=== PATIENT | female | born 1955 | race Caucasian/White ===

== ENCOUNTER 2018-12-27 11:50 | Emergency (ER) | payer OTHER ==
[2018-12-27] MEDS ORDERED: ONDANSETRON 4 MG/2 ML VIAL ONE ×3 (12:23→16:39)
--- NOTE | 2018-12-27 12:42 | RAD REPORT ---
EXAM DESCRIPTION: CT - CTHCSPWOC - 12/27/2018 12:29 pm CLINICAL HISTORY: Trauma, head and neck injury. PAIN COMPARISON: No comparisons TECHNIQUE: Axial 5 mm thick images of the head were obtained. Axial 2 mm thick images of the cervical spine were obtained with sagittal and coronal reconstruction images generated and reviewed. All CT scans are performed using dose optimization technique as appropriate and may include automated exposure control or mA/KV adjustment according to patient size. FINDINGS: CT HEAD WITHOUT CONTRAST: No acute hemorrhage, hydrocephalus or extra-axial collection is identified.No areas of brain edema or midline shift. The paranasal sinuses and mastoids are clear.The calvarium is intact. CT CERVICAL SPINE WITHOUT CONTRAST: No fracture or subluxation.No prevertebral soft tissues swelling is identified. IMPRESSION: No acute intracranial or cervical spine findings.
--- NOTE | 2018-12-27 12:49 | RAD REPORT ---
EXAM DESCRIPTION: RAD - Chest Single View - 12/27/2018 12:39 pm CLINICAL HISTORY: CHEST PAIN Chest pain. COMPARISON: CHEST SINGLE VIEW dated 02/06/2009; CHEST SINGLE VIEW dated 06/14/2003 FINDINGS: Portable technique limits examination quality. The lungs are grossly clear. The heart is normal in size. No displaced fractures. IMPRESSION: No acute intrathoracic process suspected.
[2018-12-27 12:55] LABS: Absolute Lymphocytes (CBC) 1.4 K/uL (0.7-4.9); Hematocrit 38.8 % (36.0-45.0); Lymphocytes % 17.2 % (15.3-44.8); MPV 8.1 fL (7.6-11.3); RBC Red Blood Cell Count 4.41 M/uL (3.86-4.86)
[2018-12-27] MEDS ORDERED: MORPHINE 4 MG/ML SYR ONE (12:55)
[2018-12-27 13:00] LABS: Protime INR 1.01
--- NOTE | 2018-12-27 13:08 | EKG ---
Test Date: 2018-12-27 Test Time: 12:11:05 Immigration Services Officer: SHIMA MEASUREMENT RESULTS: Intervals: Rate: 76 [place]: 128 QRSD: 80 QT: 388 QTc: 436 [place]: P: 41 [place]: 128 QRS: 37 T: 1 INTERPRETIVE STATEMENTS: Normal sinus rhythm Nonspecific ST and T wave abnormality Abnormal ECG Compared to ECG 02/07/2009 09:04:24 ST (T wave) deviation now present Sinus tachycardia no longer present Electronically Signed On 12-27-18 13:08:28 CDT by Christiano Cabral
[2018-12-27 13:20] LABS: Potassium 3.6 mmol/L (3.5-5.1)
[2018-12-27 13:26] LABS: ALT/SGPT 27 U/L (12-78); AST/SGOT 15 U/L (15-37); Albumin 3.8 g/dL (3.4-5.0); Alkaline Phosphatase 60 U/L (45-117); Bilirubin Direct < 0.1 mg/dL (0-0.2); Bilirubin Total 0.4 mg/dL (0.2-1.0); Magnesium 2.3 mg/dL (1.8-2.4); NT PRO-BNP 75 pg/mL (<125); Protein, Total 7.4 g/dL (6.4-8.2); Troponin (Emerg Dept Use Only) < 0.02 ng/mL (0.0-0.045)
[2018-12-27] MEDS ORDERED: TRAMADOL HCL 50 MG TAB ONE (15:20)
--- NOTE | 2018-12-27 16:22 | ER ---
Nurse's Notes [facility] Name: Jennifer Augustine Age: 63 yrs Sex: Female : 1955 Arrival Date: 12/27/2018 Time: 11:52 Bed 4 Private MD: Nicholas Barnes T Diagnosis: Superficial injury of head;Syncope and collapse Presentation: 12/27 12:01 Presenting complaint: Tripped over water hose, landed supine on concrete, positive LOC hb at 0930 today. Also reports syncopal episode x 3 and vomit x 7 since fall, sinus congestion, nausea, and malaise x 5 days, severe stress following brother's 1 week ago. Care prior to arrival: Medication(s) given: ASA, 81 mg, x 2. Mechanism of Injury: Fall from standing position. 12:01 Acuity: JOLIE 2 hb 12:01 Method Of Arrival: Wheelchair hb 12:11 Trauma event details: Injury occurred in the [facility], Injury occurred: at home. Injury occurred: December 27, 2018 Injury occurred at: 09:30. Trauma Activation: Alert Physician: ED Physician; Name: Dr. Lombardo; Notified At: 12:12; Arrived At: 12:12 Physician: General Surgeon; Name: ; Notified At: 12:12; Arrived At: Physician: Radiology; Name: ; Notified At: 12:12; Arrived At: Physician: Respiratory; Name: ; Notified At: 12:12; Arrived At: Physician: Lab; Name: ; Notified At: 12:12; Arrived At: Historical: - Allergies: 12:07 hydrocodone bitartrate; hb - Home Meds: 12:07 None [Active]; hb - PMHx: 12:07 None; hb - PSHx: 12:07 Cholecystectomy; Appendectomy; Tubal ligation; ankle sx; hb - Immunization history:: Adult Immunizations up to date. - Social history:: Smoking status: Patient/guardian denies using tobacco. - Ebola Screening: : No symptoms or risks identified at this time. Screenin:13 Abuse screen: Denies threats or abuse. Denies injuries from another. Tuberculosis hb screening: No symptoms or risk factors identified. Primary Survey: 12:01 NO uncontrolled hemorrhage observed. A: The patient is alert. Airway: patent, No hb supplemental oxygen in use on arrival. Breathing/Chest: Respiratory pattern: regular, Respiratory effort: spontaneous, unlabored, Chest inspection: symmetrical rise and fall of the chest. Circulation: Skin color: pink, Skin temperature: warm, dry. Disability Alert. Exposure/Environment: No obvious injuries are noted at this time. A warming method has been applied: A warm blanket has been provided to the patient. Secondary Survey: 12:15 HEENT: Head Other swelling noted to the occipital area of head Face No injury/deformity sg Eyes: No injury or deformity noted. Ears: clear bilaterally. Nose: clear to bilateral nares. Throat: No injury or deformity noted. Gastrointestinal: Abdomen is soft, non-distended. : No signs and/or symptoms were reported regarding the genitourinary system. Musculoskeletal: No signs and/or symptoms reported regarding the musculoskeletal system. Injury Description: hematoma to occipital area. Assessment: 12:39 Reassessment: Patient appears in no apparent distress at this time. Patient and/or sg family updated on plan of care and expected duration. Pain level reassessed. Patient is alert, oriented x 3, equal unlabored respirations, skin warm/dry/pink. General: Behavior is calm, cooperative. Neuro: Level of Consciousness is awake, alert, obeys commands, Oriented to person, place, time, Speech is normal, Facial symmetry appears normal. 13:50 Reassessment: Patient appears in no apparent distress at this time. Patient and/or sg family updated on plan of care and expected duration. Pain level reassessed. Patient is alert, oriented x 3, equal unlabored respirations, skin warm/dry/pink. pt reports feeling drowsy after pain medication, but also reports pain has decreased. 14:30 Reassessment: Patient appears in no apparent distress at this time. Patient and/or sg family updated on plan of care and expected duration. Pain level reassessed. Patient is alert, oriented x 3, equal unlabored respirations, skin warm/dry/pink. pt complaining of headache at this time, notified, no new orders received. to re evaluate pt and update on results and POC, will continue to monitor. 16:20 Reassessment: a discharge has been ordered, awaiting discharge paperwork to be printed sg at this time. 16:40 Reassessment: pt requesting antinausea medication prior to discharge to home, awaiting sg prescriptions to be printed at this time. Vital Signs: 12:05 BP 145 / 90; Pulse 84; Resp 16; Temp 97.1; Pulse Ox 100% on R/A; Weight 75.75 kg; hb Height 5 ft. 4 in. (162.56 cm); Pain 8/10; 13:05 BP 112 / 88; Pulse 88; Resp 17; Pulse Ox 96% on R/A; Pain 7/10; sg 13:48 BP 117 / 51; Pulse 68; Resp 16; Pulse Ox 95% on R/A; Pain 3/10; sg 14:30 BP 102 / 65; Pulse 72; Resp 17; Pulse Ox 96% on R/A; sg 15:53 BP 118 / 69; Pulse 89; Resp 17; Pulse Ox 100% on R/A; Pain 3/10; sg 16:29 BP 137 / 66; Pulse 87; Resp 17; Pulse Ox 99% on R/A; sg 12:05 Body Mass Index 28.67 (75.75 kg, 162.56 cm) hb [place] Coma Score: 13:05 Eye Response: spontaneous(4). Verbal Response: oriented(5). Motor Response: obeys sg commands(6). Total: 15. 15:53 Eye Response: spontaneous(4). Verbal Response: oriented(5). Motor Response: obeys sg commands(6). Total: 15. Trauma Score (Adult): 12:05 Eye Response: spontaneous(1); Verbal Response: oriented(1); Motor Response: obeys hb commands(2); Systolic BP: > 89 mm Hg(4); Respiratory Rate: 10 to 29 per min(4); [place] Score: 15; Trauma Score: 12 13:05 Eye Response: spontaneous(1); Verbal Response: oriented(1); Motor Response: obeys sg commands(2); Systolic BP: > 89 mm Hg(4); Respiratory Rate: 10 to 29 per min(4); [place] Score: 15; Trauma Score: 12 13:48 Eye Response: spontaneous(1); Verbal Response: oriented(1); Motor Response: obeys sg commands(2); Systolic BP: > 89 mm Hg(4); Respiratory Rate: 10 to 29 per min(4); [place] Score: 15; Trauma Score: 12 15:53 Eye Response: spontaneous(1); Verbal Response: oriented(1); Motor Response: obeys sg commands(2); Systolic BP: > 89 mm Hg(4); Respiratory Rate: 10 to 29 per min(4); [place] Score: 15; Trauma Score: 12 ED Course: 11:52 Patient arrived in ED. ag5 11:53 Nicholas Barnes MD is Private Physician. ag5 11:54 Adam Lombardo MD is Attending Physician. kdr 12:05 Triage completed. hb 12:06 Arm band placed on. hb 12:22 EKG done, by registered diet technician. reviewed by Adam Lombardo MD. at1 12:30 CT Head C Spine In Process Unspecified. EDMS 12:30 Patient has correct armband on for positive identification. Placed in gown. Bed in low sg position. Side rails up X2. Pulse ox on. NIBP on. Warm blanket given. Head of bed elevated. 12:30 Initial lab(s) drawn, by ED staff, sent to lab. T\T\S collected, blood band applied to sg patient. Inserted saline lock: 18 gauge in right antecubital area, using aseptic technique. Blood collected. 12:34 Abdirashid Alexander, RN is Primary Nurse. sg 12:38 XRAY Chest (1 view) In Process Unspecified. EDMS 12:40 Awaiting radiology results. sg 16:20 Nicholas Barnes MD is Referral Physician. kdr Administered Medications: 12:25 Drug: Zofran 4 mg Route: IVP; Site: right antecubital; sg 13:10 Follow up: Response: No adverse reaction; Nausea is decreased sg 13:01 Drug: morphine 4 mg Route: IVP; Site: right antecubital; sg 13:53 Follow up: Response: No adverse reaction; Pain is decreased sg 15:19 Drug: traMADol 50 mg Route: PO; sg Outcome: 16:21 Discharge ordered by . kdr 16:50 Discharged to home ambulatory, with family. sg 16:50 Condition: good 16:50 Discharge instructions given to patient, Instructed on discharge instructions, follow up and referral plans. medication usage, safety practices, Demonstrated understanding of instructions, follow-up care, medications, Prescriptions given X 1. 17:05 Patient left the ED. sg Signatures: Dispatcher [employer] EDMS Abdirashid Alexander RN RN Adam Pimentel MD MD kdr Gonzales, Amanda, machinery cleaner EKG Tat1 Kristin Gilbert RN RN Nasim Danny ag5 Corrections: (The following items were deleted from the chart) 12:12 12:01 Presenting complaint: Tripped over water hose, landed supine on concrete, hb positive LOC. Also reports syncopal episode x 3 and vomit x 7 today, sinus congestion, nausea, and malaise x 5 days. 12:13 12:01 Care prior to arrival: None. [facility] 12:15 12:01 Presenting complaint: Tripped over water hose, landed supine on concrete, hb positive LOC. Also reports syncopal episode x 3 and vomit x 7 today, sinus congestion, nausea, and malaise x 5 days.
--- NOTE | 2018-12-27 16:22 | EDPHYS ---
Physician Documentation [facility] Name: Jennifer Augustine Age: 63 yrs Sex: Female : 1955 Arrival Date: 12/27/2018 Time: 11:52 Bed 4 Private MD: Nicholas Barnes T ED Physician Adam Lombardo HPI: 12/27 12:20 This 63 yrs old Female presents to ER via Wheelchair with complaints of Fall kdr Injury, Passed Out Prior To Arrival, Vomiting. 12:20 Details of fall: The patient fell from an upright position, while standing, while kdr walking. Onset: The symptoms/episode began/occurred just prior to arrival, this morning. Associated injuries: The patient sustained injury to the head, contusion, pain, tenderness, neck injury, contusion. Severity of symptoms: At their worst the symptoms were mild, just prior to arrival, in the emergency department the symptoms are unchanged. The patient has not experienced similar symptoms in the past. The patient has not recently seen a physician. The patient states that she tripped over a hose and fell flat on her back hitting her head on the ground. She believes that she was briefly unconscious but was able to get up. She states that since then, she has blacked out once and vomited nine times. She also c/o being very dizzy. Historical: - Allergies: 12:07 hydrocodone bitartrate; hb - Home Meds: 12:07 None [Active]; hb - PMHx: 12:07 None; hb - PSHx: 12:07 Cholecystectomy; Appendectomy; Tubal ligation; ankle sx; hb - Immunization history:: Adult Immunizations up to date. - Social history:: Smoking status: Patient/guardian denies using tobacco. - Ebola Screening: : No symptoms or risks identified at this time. ROS: 12:20 Constitutional: Negative for fever, chills, and weight loss, Eyes: Negative for injury, kdr pain, redness, and discharge, ENT: Negative for injury, pain, and discharge, Neck: Negative for injury, pain, and swelling, Respiratory: Negative for shortness of breath, cough, wheezing, and pleuritic chest pain, Abdomen/GI: Negative for abdominal pain, nausea, vomiting, diarrhea, and constipation, Back: Negative for injury and pain, : Negative for injury, bleeding, discharge, and swelling, MS/Extremity: Negative for injury and deformity, Skin: Negative for injury, rash, and discoloration, Psych: Negative for depression, anxiety, suicide ideation, homicidal ideation, and hallucinations, Allergy/Immunology: Negative for hives, rash, and allergies, Endocrine: Negative for neck swelling, polydipsia, polyuria, polyphagia, and marked weight changes, Hematologic/Lymphatic: Negative for swollen nodes, abnormal bleeding, and unusual bruising. 12:20 Cardiovascular: Positive for chest pain, Negative for edema, orthopnea, palpitations, paroxysmal nocturnal dyspnea. Exam: 12:20 Constitutional: This is a well developed, well nourished patient who is awake, alert, kdr and in no acute distress. Head/Face: Normocephalic, atraumatic. Eyes: Pupils equal round and reactive to light, extra-ocular motions intact. Lids and lashes normal. Conjunctiva and sclera are non-icteric and not injected. Cornea within normal limits. Periorbital areas with no swelling, redness, or edema. Chest/axilla: Normal chest wall appearance and motion. Nontender with no deformity. No lesions are appreciated. Cardiovascular: Regular rate and rhythm with a normal S1 and S2. No gallops, murmurs, or rubs. Normal PMI, no JVD. No pulse deficits. Respiratory: Lungs have equal breath sounds bilaterally, clear to auscultation and percussion. No rales, rhonchi or wheezes noted. No increased work of breathing, no retractions or nasal flaring. Back: No spinal tenderness. No costovertebral tenderness. Full range of motion. Skin: Warm, dry with normal turgor. Normal color with no rashes, no lesions, and no evidence of cellulitis. MS/ Extremity: Pulses equal, no cyanosis. Neurovascular intact. Full, normal range of motion. Psych: Awake, alert, with orientation to person, place and time. Behavior, mood, and affect are within normal limits. 12:20 Abdomen/GI: Soft, non-tender, with normal bowel sounds. No distension or tympany. No guarding or rebound. No evidence of tenderness throughout. Neuro: Awake and alert, GCS 15, oriented to person, place, time, and situation. Cranial nerves II-XII grossly intact. Motor strength 5/5 in all extremities. Sensory grossly intact. Cerebellar exam normal. Normal gait. 12:20 Head/face: Noted is tenderness, that is mild, of the left side of the back of head and right occipital area. Vital Signs: 12:05 BP 145 / 90; Pulse 84; Resp 16; Temp 97.1; Pulse Ox 100% on R/A; Weight 75.75 kg; hb Height 5 ft. 4 in. (162.56 cm); Pain 8/10; 13:05 BP 112 / 88; Pulse 88; Resp 17; Pulse Ox 96% on R/A; Pain 7/10; sg 13:48 BP 117 / 51; Pulse 68; Resp 16; Pulse Ox 95% on R/A; Pain 3/10; sg 14:30 BP 102 / 65; Pulse 72; Resp 17; Pulse Ox 96% on R/A; sg 15:53 BP 118 / 69; Pulse 89; Resp 17; Pulse Ox 100% on R/A; Pain 3/10; sg 16:29 BP 137 / 66; Pulse 87; Resp 17; Pulse Ox 99% on R/A; sg 12:05 Body Mass Index 28.67 (75.75 kg, 162.56 cm) hb [place] Coma Score: 13:05 Eye Response: spontaneous(4). Verbal Response: oriented(5). Motor Response: obeys sg commands(6). Total: 15. 15:53 Eye Response: spontaneous(4). Verbal Response: oriented(5). Motor Response: obeys sg commands(6). Total: 15. Trauma Score (Adult): 12:05 Eye Response: spontaneous(1); Verbal Response: oriented(1); Motor Response: obeys hb commands(2); Systolic BP: > 89 mm Hg(4); Respiratory Rate: 10 to 29 per min(4); [place] Score: 15; Trauma Score: 12 13:05 Eye Response: spontaneous(1); Verbal Response: oriented(1); Motor Response: obeys sg commands(2); Systolic BP: > 89 mm Hg(4); Respiratory Rate: 10 to 29 per min(4); [place] Score: 15; Trauma Score: 12 13:48 Eye Response: spontaneous(1); Verbal Response: oriented(1); Motor Response: obeys sg commands(2); Systolic BP: > 89 mm Hg(4); Respiratory Rate: 10 to 29 per min(4); [place] Score: 15; Trauma Score: 12 15:53 Eye Response: spontaneous(1); Verbal Response: oriented(1); Motor Response: obeys sg commands(2); Systolic BP: > 89 mm Hg(4); Respiratory Rate: 10 to 29 per min(4); [place] Score: 15; Trauma Score: 12 MDM: 12:20 Data reviewed: vital signs, nurses notes, lab test result(s), EKG, radiologic studies. kdr Counseling: I had a detailed discussion with the patient and/or guardian regarding: the historical points, exam findings, and any diagnostic results supporting the discharge/admit diagnosis, lab results, radiology results. 16:21 Patient medically screened. [facility] 12/27 12:12 Order name: Basic Metabolic Panel; Complete Time: 13:36 kdr 12/27 12:12 Order name: CBC with Diff; Complete Time: 13:36 kdr 12/27 12:12 Order name: Creatinine for Radiology; Complete Time: 13:36 [facility] 12/27 12:12 Order name: Type And Screen; Complete Time: 15:04 [facility] 12/27 12:27 Order name: LFT's; Complete Time: 13:36 em1 12/27 12:27 Order name: Magnesium; Complete Time: 13:36 1 12/27 12:12 Order name: CT Head C Spine; Complete Time: 13:36 [facility] 12/27 12:27 Order name: NT PRO-BNP; Complete Time: 13:36 1 12/27 12:27 Order name: PT-INR; Complete Time: 13:36 1 12/27 12:27 Order name: Troponin (emerg Dept Use Only); Complete Time: 13:36 1 12/27 12:27 Order name: XRAY Chest (1 view); Complete Time: 13:36 1 12/27 13:39 Order name: Troponin (emerg Dept Use Only); Complete Time: 15:04 kdr 12/27 12:12 Order name: Labs collected and sent; Complete Time: 12:39 kdr 12/27 12:27 Order name: EKG; Complete Time: 12:28 em1 12/27 12:27 Order name: Cardiac monitoring; Complete Time: 12:39 1 12/27 12:27 Order name: EKG - Nurse/Tech; Complete Time: 12:39 em1 12/27 12:27 Order name: IV Saline Lock; Complete Time: 12:39 em1 12/27 12:27 Order name: O2 Per Protocol; Complete Time: 12:39 em1 12/27 12:27 Order name: O2 Sat Monitoring; Complete Time: 12:39 em1 Administered Medications: 12:25 Drug: Zofran 4 mg Route: IVP; Site: right antecubital; sg 13:10 Follow up: Response: No adverse reaction; Nausea is decreased sg 13:01 Drug: morphine 4 mg Route: IVP; Site: right antecubital; sg 13:53 Follow up: Response: No adverse reaction; Pain is decreased sg 15:19 Drug: traMADol 50 mg Route: PO; sg Disposition: 12/27/18 16:21 Discharged to Home. Impression: Superficial injury of head, Syncope and collapse. - Condition is Stable. - Discharge Instructions: Syncope, [id number], Head Injury, Adult, [id number]. - Prescriptions for Tramadol 50 mg Oral Tablet - take 1 tablet by ORAL route every 8 hours As needed as needed; 12 tablet. Zofran 4 mg Oral Tablet - take 1 tablet by ORAL route every 4-6 hours As needed; 16 tablet. - Work release form, Medication Reconciliation Form, Thank You Letter, Prescription Opioid Use form. - Follow up: Nicholas Barnes MD; When: 2 - 3 days; Reason: If symptoms return, Further diagnostic work-up, Recheck today's complaints, Continuance of care, Re-evaluation by your physician. - Problem is new. - Symptoms have improved. Signatures: Dispatcher [employer] EDMS Abdirashid Alexander, RN RN sg Adam Lombardo MD MD kdr Martinez, Eric em1 Kristin Gilbert RN RN Corrections: (The following items were deleted from the chart) 17:05 16:21 12/27/2018 16:21 Discharged to Home. Impression: Superficial injury of head; sg Syncope and collapse. Condition is Stable. Forms are Medication Reconciliation Form, Thank You Letter, Antibiotic Education, Prescription Opioid Use. Follow up: Nicholas Barnes; When: 2 - 3 days; Reason: If symptoms return, Further diagnostic work-up, Recheck today's complaints, Continuance of care, Re-evaluation by your physician. Problem is new. Symptoms have improved. kdr
[2018-12-27 17:47] VITALS: TEMP 97.1
[2018-12-27 17:53] VITALS: BP 137/66; O2SAT 99
== END 2018-12-27 17:05 | disposition home or self-care (01) ==
LOC: ER 11:50
DX: S00.90XA Unspecified superficial injury of unspecified part of head, initial encounter (principal); W01.198A Fall on same level from slipping, tripping and stumbling with subsequent striking against other object, initial encounter; Y93.01 Activity, walking, marching and hiking; Y92.9 Unspecified place or not applicable; Z88.5 Allergy status to narcotic agent
CPT/HCPCS: 93005; 85025; 80048; 36415; 86900; 83735; 86850; 85610; 86901; 80076; 84484 ×2; 83880; 70450; 72125; 71045; 96375; 96374; 99284; J2405 ×3

== ENCOUNTER 2019-01-02 15:47 | Observation (INO) | payer OTHER ==
[2019-01-02] MEDS ORDERED: NA CHLORIDE 0.9% 2,000 ML ONE (17:04)
--- NOTE | 2019-01-02 17:08 | RAD REPORT ---
EXAM DESCRIPTION: RAD - Chest Single View - 01/02/2019 4:58 pm CLINICAL HISTORY: Fall, chest pain COMPARISON: December 27 TECHNIQUE: AP portable chest image was obtained 1653 hours . FINDINGS: Lungs are clear. Heart and vasculature are normal. No measurable pleural effusion and no p neumothorax. No acute bony abnormality seen. No acute aortic findings suspected. IMPRESSION: No acute cardiopulmonary process. No significant interval change.
[2019-01-02 17:12] LABS: Absolute Lymphocytes (CBC) 2.3 K/uL (0.7-4.9); Basophils % 0.8 % (0-1.3); Lymphocytes % 36.1 % (15.3-44.8); MPV 8.1 fL (7.6-11.3); Protime INR 1.04; RBC Red Blood Cell Count 5.06 M/uL (3.86-4.86)
[2019-01-02 17:22] LABS: ALT/SGPT 27 U/L (12-78); AST/SGOT 20 U/L (15-37); Albumin 3.9 g/dL (3.4-5.0); Alkaline Phosphatase 69 U/L (45-117); BUN Blood Urea Nitrogen 10 mg/dL (7-18); Bicarbonate 29 mmol/L (21-32); Bilirubin Direct 0.1 mg/dL (0-0.2); Bilirubin Total 0.5 mg/dL (0.2-1.0); Glucose Level 102 mg/dL (74-106); Magnesium 2.3 mg/dL (1.8-2.4); NT PRO-BNP 29 pg/mL (<125); Potassium 3.5 mmol/L (3.5-5.1); Protein, Total 7.6 g/dL (6.4-8.2); Sodium Level 142 mmol/L (136-145); Troponin (Emerg Dept Use Only) < 0.02 ng/mL (0.0-0.045)
[2019-01-02] MEDS ORDERED: DIPHENHYDRAMINE 50 MG/ML VIAL ONE (17:37)
[2019-01-02] MEDS ORDERED: METOCLOPRAMIDE 10 MG/2mL INJ ONE (17:37)
--- NOTE | 2019-01-02 18:21 | ER ---
Nurse's Notes [facility] Name: Jennifer Augustine Age: 63 yrs Sex: Female : 1955 Arrival Date: 01/02/2019 Time: 15:49 Bed 18 Private MD: Nicholas Barnes T Diagnosis: Syncope and collapse Presentation: 01/02 15:54 Presenting complaint: Patient states: "I was just here on for a fall injury aa5 and I am still having the same symptoms, severe headache, nausea, blurry vision, chest pain, and back pain". Transition of care: patient was not received from another setting of care. Onset of symptoms was December 2018. Risk Assessment: Do you want to hurt yourself or someone else? Patient reports no desire to harm self or others. Initial Sepsis Screen: Does the patient meet any 2 criteria? No. Patient's initial sepsis screen is negative. Does the patient have a suspected source of infection? No. Patient's initial sepsis screen is negative. Care prior to arrival: None. 15:54 Acuity: JOLIE 3 aa5 15:54 Method Of Arrival: Ambulatory aa5 Historical: - Allergies: 15:55 hydrocodone bitartrate; aa5 - PMHx: 15:56 None; aa5 - PSHx: 15:55 Cholecystectomy; Appendectomy; Tubal ligation; ankle sx; aa5 - Immunization history:: Flu vaccine is not up to date. - Social history:: Smoking status: Patient/guardian denies using tobacco. - Ebola Screening: : No symptoms or risks identified at this time. Screenin:00 Abuse screen: Denies threats or abuse. Denies injuries from another. Nutritional sv screening: No deficits noted. Tuberculosis screening: No symptoms or risk factors identified. Fall Risk None identified. Assessment: 16:30 General: Appears in no apparent distress. comfortable, well developed, Behavior is sv calm, cooperative, appropriate for age. Pain: Complains of pain in left occipital area and left side of forehead Pain currently is 9 out of 10 on a pain scale. Quality of pain is described as throbbing, Is continuous. Neuro: Level of Consciousness is awake, alert, obeys commands, Oriented to person, place, time, situation, Moves all extremities. Full function Gait is steady, Speech is normal. Neuro: Reports dizziness, headache in left frontal area, occipital area. Respiratory: Respiratory effort is even, unlabored, Respiratory pattern is regular, symmetrical. Derm: Skin is normal. 17:10 Reassessment: Patient appears in no apparent distress at this time. No changes from sv previously documented assessment. Patient and/or family updated on plan of care and expected duration. Pain level reassessed. Patient is alert, oriented x 3, equal unlabored respirations, skin warm/dry/pink. 17:42 Reassessment: Patient appears in no apparent distress at this time. No changes from sv previously documented assessment. Patient and/or family updated on plan of care and expected duration. Pain level reassessed. Patient is alert, oriented x 3, equal unlabored respirations, skin warm/dry/pink. 18:13 Reassessment: Patient appears in no apparent distress at this time. No changes from sv previously documented assessment. Patient and/or family updated on plan of care and expected duration. Pain level reassessed. Patient is alert, oriented x 3, equal unlabored respirations, skin warm/dry/pink. 18:36 Reassessment: Dr Mckeon at the bedside. sv 19:00 Reassessment: Patient appears in no apparent distress at this time. Patient and/or jb4 family updated on plan of care and expected duration. Pain level reassessed. Patient is alert, oriented x 3, equal unlabored respirations, skin warm/dry/pink. 19:46 Reassessment: Patient appears in no apparent distress at this time. Patient and/or jb4 family updated on plan of care and expected duration. Pain level reassessed. Patient is alert, oriented x 3, equal unlabored respirations, skin warm/dry/pink. Attempted to call report, unstructured to wait for call back. 20:10 Reassessment: Patient appears in no apparent distress at this time. Patient and/or jb4 family updated on plan of care and expected duration. Pain level reassessed. Patient is alert, oriented x 3, equal unlabored respirations, skin warm/dry/pink. Vital Signs: 15:56 BP 141 / 76; Pulse 74; Resp 18 S; Temp 98.5(TE); Pulse Ox 97% on R/A; Weight 74.39 kg aa5 (R); Pain 9/10; 17:00 BP 147 / 69 Supine; Pulse 80; jb1 17:00 BP 145 / 71 Sitting; Pulse 75; jb1 17:00 BP 114 / 77 Standing; Pulse 107; jb1 17:32 BP 135 / 75; Pulse 65; Resp 12; Pulse Ox 99% ; sv 18:13 BP 153 / 71; Pulse 77; Resp 15; Pulse Ox 99% ; sv 19:30 BP 142 / 74; Pulse 76; Resp 15; Temp 99.0(O); Pulse Ox 99% on R/A; jb4 ED Course: 15:49 Patient arrived in ED. mr 15:49 Nicholas Barnes MD is Private Physician. mr 15:54 Arm band placed on. aa5 15:55 Triage completed. aa5 16:13 [facility] jr8 16:13 Narinder Zavala MD is Attending Physician. jr8 16:18 Jessica Nuñez, RASHARD is Primary Nurse. sv 16:59 XRAY Chest (1 view) In Process Unspecified. EDMS 17:00 Patient has correct armband on for positive identification. Placed in gown. Bed in low sv position. Call light in reach. Side rails up X2. Adult w/ patient. cardiology consultants on. Pulse ox on. NIBP on. Door closed. Warm blanket given. Head of bed elevated. 17:01 Inserted saline lock: 22 gauge in right antecubital area, using aseptic technique. jb1 17:01 Initial lab(s) drawn, by il, sent to lab. jb1 17:12 EKG done, by medical office technology instructor. reviewed by Dharmesh ALBERTS. sm3 18:[address] Scan. sv 18:20 Ian Mckeon DO is Hospitalizing Provider. jr8 18:[address] via wheelchair. sv 18:44 Awaiting bed assignment, Awaiting radiology results. sv 18:47 CT Head C Spine In Process Unspecified. EDMS 19:01 Primary Nurse role handed off by Jessica Nuñez, RASHARD sv 20:10 No provider procedures requiring assistance completed. Patient admitted, IV remains in jb4 place. Administered Medications: 17:10 Drug: NS 0.9% 1000 ml Route: IV; Rate: 1000 ml; Site: right antecubital; sv 20:10 Follow up: Response: No adverse reaction; IV Status: Completed infusion; IV Intake: jb4 1000ml 17:10 Drug: NS 0.9% 1000 ml Route: IV; Rate: 1000 ml; Site: right antecubital; sv 20:10 Follow up: Response: No adverse reaction; IV Status: Completed infusion; IV Intake: jb4 1000ml 17:30 CANCELLED (Other Intervention Used): Zofran 4 mg IVP once; over 2 minutes jr8 17:40 Drug: Benadryl 25 mg Route: IVP; Site: right antecubital; sv 18:17 Follow up: Response: No adverse reaction sv 17:42 Drug: Reglan 10 mg Route: IVP; Infused Over: 3 mins; Site: right antecubital; sv 18:17 Follow up: Response: No adverse reaction sv Intake: 20:10 IV: 1000ml; Total: 1000ml. jb4 20:10 IV: 1000ml; Total: 2000ml. jb4 Outcome: 18:20 Decision to Hospitalize by Provider. jr8 20:10 Admitted to Tele accompanied by tech, via wheelchair, room 228, with chart. jb4 20:10 Condition: stable 20:10 Discharge instructions given to patient, family, Instructed on the need for admit, Demonstrated understanding of instructions. 20:32 Patient left the ED. jb4 Signatures: Dispatcher [employer] EDMS Nikhil Holbrook jb1 Jessica Nuñez, RN RN ze LouieaYeny mr SalgadoElis, RN RN aa5 Dharmesh Yates PA PA jr8 Ramón Valentino RN RN jb4 Mily Sewell 3 Corrections: (The following items were deleted from the chart) 15:57 15:56 BP 141 / 76; Pulse 74bpm; Resp 18bpm; Spontaneous; Pulse Ox 97% RA; Temp 98.5F aa5 Temporal; aa5 20:32 20:31 Response: No adverse reaction; IV Status: Infusion continued upon admission jb4 jb4
--- NOTE | 2019-01-02 18:21 | EDPHYS ---
Physician Documentation [facility] Name: Jennifer Augustine Age: 63 yrs Sex: Female : 1955 Arrival Date: 01/02/2019 Time: 15:49 Bed 18 Private MD: Nicholas Barnes T ED Physician Narinder Zavala HPI: 01/02 16:40 This 63 yrs old Female presents to ER via Ambulatory with complaints of jr8 Headache, Vomiting, Dizziness. 16:40 The patient complains of pain to the left side of forehead and left occipital area. The jr8 patient describes the headache as constant. Onset: The symptoms/episode began/occurred 1 week(s) ago. Associated signs and symptoms: Pertinent positives: Photophobia blurred vision, vomiting. Severity of symptoms: At its worst the pain was moderate. the symptoms are aggravated by lights. pt reports that she had a syncopal episode on that caused her to fall and hit her head, since then she has continued to have a headache, nausea, dizziness, and has had two near syncopal episodes and one syncopal episode. Also reports episodes of severe palpitations but states these do not seem to be associated with the syncope. . Historical: - Allergies: 15:55 hydrocodone bitartrate; aa5 - PMHx: 15:56 None; aa5 - PSHx: 15:55 Cholecystectomy; Appendectomy; Tubal ligation; ankle sx; aa5 - Immunization history:: Flu vaccine is not up to date. - Social history:: Smoking status: Patient/guardian denies using tobacco. - Ebola Screening: : No symptoms or risks identified at this time. ROS: 16:40 Constitutional: Negative for fever, chills, and weight loss, Eyes: Negative for injury, jr8 pain, redness, and discharge, ENT: Negative for injury, pain, and discharge, Neck: Negative for injury, pain, and swelling, Cardiovascular: + for chest pain and back pain Respiratory: Negative for shortness of breath, cough, wheezing, and pleuritic chest pain, Abdomen/GI: Negative for abdominal pain, nausea, vomiting, diarrhea, and constipation, Back: Negative for injury and pain, MS/Extremity: Negative for injury and deformity. 16:40 Neuro: Positive for dizziness, syncope, near syncope. Exam: 16:43 Constitutional: This is a well developed, well nourished patient who is awake, alert, jr8 and in no acute distress. Head/Face: Normocephalic, atraumatic. Eyes: Pupils equal round and reactive to light, extra-ocular motions intact. Lids and lashes normal. Conjunctiva and sclera are non-icteric and not injected. Cornea within normal limits. Periorbital areas with no swelling, redness, or edema. ENT: Mucous membranes moist. Neck: Supple, full range of motion without nuchal rigidity, or vertebral point tenderness. No Meningismus. Chest/axilla: Normal chest wall appearance and motion. Nontender with no deformity. No lesions are appreciated. Cardiovascular: Regular rate and rhythm with a normal S1 and S2. No gallops, murmurs, or rubs. Normal PMI, no JVD. No pulse deficits. Respiratory: Lungs have equal breath sounds bilaterally, clear to auscultation No rales, rhonchi or wheezes noted. No increased work of breathing, no retractions or nasal flaring. Abdomen/GI: Soft, non-tender, with normal bowel sounds. No distension or tympany. No guarding or rebound. No evidence of tenderness throughout. 16:43 Neuro: Orientation: is normal, Mentation: is normal, Memory: is normal, immediate memory is intact, Cranial nerves: grossly normal, CN II- XII are normal as tested, visual aburto are intact. extraocular movements are intact, Cerebellar function: is grossly normal, normal finger to nose testing. Vital Signs: 15:56 BP 141 / 76; Pulse 74; Resp 18 S; Temp 98.5(TE); Pulse Ox 97% on R/A; Weight 74.39 kg aa5 (R); Pain 9/10; 17:00 BP 147 / 69 Supine; Pulse 80; jb1 17:00 BP 145 / 71 Sitting; Pulse 75; jb1 17:00 BP 114 / 77 Standing; Pulse 107; jb1 17:32 BP 135 / 75; Pulse 65; Resp 12; Pulse Ox 99% ; sv 18:13 BP 153 / 71; Pulse 77; Resp 15; Pulse Ox 99% ; sv 19:30 BP 142 / 74; Pulse 76; Resp 15; Temp 99.0(O); Pulse Ox 99% on R/A; jb4 MDM: 16:13 Patient medically screened. 8 18:07 Data reviewed: vital signs, nurses notes, lab test result(s), EKG, radiologic studies. Data interpreted: Pulse oximetry: on room air is 99 %. Interpretation: normal. Counseling: I had a detailed discussion with the patient and/or guardian regarding: the historical points, exam findings, and any diagnostic results supporting the discharge/admit diagnosis, lab results, radiology results. 01/02 16:39 Order name: Basic Metabolic Panel; Complete Time: 17:29 01/02 16:39 Order name: CBC with Diff; Complete Time: 17:44 8 01/02 16:39 Order name: LFT's; Complete Time: 17:29 01/02 16:39 Order name: Magnesium; Complete Time: 17:29 01/02 16:39 Order name: NT PRO-BNP; Complete Time: 17:29 01/02 16:39 Order name: PT-INR; Complete Time: 18:09 01/02 16:39 Order name: Troponin (emerg Dept Use Only); Complete Time: 17:29 01/02 16:39 Order name: XRAY Chest (1 view); Complete Time: 17:16 01/02 18:09 Order name: Urine Dipstick--Ancillary (enter results) bd 01/02 18:38 Order name: CT Head C Spine denise 01/02 16:39 Order name: EKG; Complete Time: 16:40 01/02 16:39 Order name: Cardiac monitoring; Complete Time: 17:02 01/02 16:39 Order name: EKG - Nurse/Tech; Complete Time: 17:02 01/02 16:39 Order name: IV Saline Lock; Complete Time: 17:02 01/02 16:39 Order name: Labs collected and sent; Complete Time: 17:02 01/02 16:39 Order name: O2 Per Protocol; Complete Time: 17:02 01/02 16:39 Order name: O2 Sat Monitoring; Complete Time: 17:10 01/02 16:39 Order name: Orthostatics; Complete Time: 17:02 Administered Medications: 17:10 Drug: NS 0.9% 1000 ml Route: IV; Rate: 1000 ml; Site: right antecubital; sv 20:10 Follow up: Response: No adverse reaction; IV Status: Completed infusion; IV Intake: jb4 1000ml 17:10 Drug: NS 0.9% 1000 ml Route: IV; Rate: 1000 ml; Site: right antecubital; sv 20:10 Follow up: Response: No adverse reaction; IV Status: Completed infusion; IV Intake: jb4 1000ml 17:30 CANCELLED (Other Intervention Used): Zofran 4 mg IVP once; over 2 minutes jr8 17:40 Drug: Benadryl 25 mg Route: IVP; Site: right antecubital; sv 18:17 Follow up: Response: No adverse reaction sv 17:42 Drug: Reglan 10 mg Route: IVP; Infused Over: 3 mins; Site: right antecubital; sv 18:17 Follow up: Response: No adverse reaction sv Disposition: 01/03 07:33 Co-signature as Attending Physician, Narinder Zavala MD I agree with the assessment and denise plan of care. Disposition: 01/02/19 18:20 Hospitalization ordered by Ian Mckeon for Observation. Preliminary diagnosis is Syncope and collapse. - Bed requested for Telemetry/MedSurg (observation). - Status is Observation. jb4 - Condition is Stable. - Problem is new. - Symptoms have improved. UTI on Admission? No Signatures: Dispatcher [employer] EDPR Jessica Nuñez RN RN Vivi Navas RN Narinder Roblero MD MD cha Calderon, Audri, RN RN aa5 Dharmesh Yates PA PA jr8 Ramón Valentino, RN RN jb4 Corrections: (The following items were deleted from the chart) 01/02 17:30 17:30 Zofran 4 mg IVP once; over 2 minutes ordered. jr8 jr8 18:44 18:16 Head Brain Wo Cont+CT.RAD.BRZ ordered. EDPR EDPR 19:05 18:20 Hospitalization Ordered by Ian Mckeon DO for Observation. Preliminary diagnosis is Syncope and collapse. Bed requested for Telemetry/MedSurg (observation). Status is Observation. Condition is Stable. Problem is new. Symptoms have improved. UTI on Admission? No. jr8 20:32 19:05 01/02/2019 18:20 Hospitalization Ordered by Ian Mckeon DO for Observation. jb4 Preliminary diagnosis is Syncope and collapse. Bed requested for Telemetry/MedSurg (observation). Status is Observation. Condition is Stable. Problem is new. Symptoms have improved. UTI on Admission? No. mw
--- NOTE | 2019-01-02 18:57 | P.HP ---
Certification for Inpatient Patient admitted to: Observation With expected LOS: <2 Midnights Patient will require the following post-hospital care: None Practitioner: I am a practitioner with admitting privileges, knowledge of patient current condition, hospital course, and medical plan of care. Services: Services provided to patient in accordance with Admission requirements found in Title 42 Section 412.3 of the Code of Federal Regulations Patient History Date of Service: 01/02/19 Primary Care Provider: Dr. Barnes Reason for admission: Syncope History of Present Illness: 63-year-old female with no prior medical problem came to the emergency room due to recurrent syncope. Patient reports last week she start to have 2 syncopal episodes. She does not recall the advance. They were not witnessed. She came to the ER and got evaluated but was sent home to follow up with cardiology. There is a family atrial fibrillation. A brother and sister has had pacemaker/defibrillator placement in the past. Since that time she has been having increased nausea, vomiting. She has had poor oral intake. She denied any diarrhea. Subjective fever noted. Some chills noted. She denies cough, shortness of breath, palpitation. She denies sick contacts. She denies any chest pain. Today she had another syncopal episode. She came to the ER for further evaluation. In the ER patient evaluated. Initial cardiac enzyme unremarkable. Chest x-ray unremarkable. CBC unremarkable with a white count of 6.3, hemoglobin 14. Platelet count of 363. Sodium 142, potassium 3.5, BUN of 10, creatinine 0.7 with a GFR 79. Glucose 102. Patient was slightly orthostatics. She was given IV fluids. She was admitted for further evaluation. CT head and neck are pending at this time. When I saw the patient in the ER, she appeared stable. Patient further reports a history of recent headaches. She denies any recent upper respiratory infection. She does not take any medication. No prior history of medical problems including heart, lung, respiratory issues. Allergies acetaminophen [From Vicodin] Allergy (Unverified 06/15/14 12:02) Unknown hydrocodone bitartrate [From Vicodin] Allergy (Unverified 06/15/14 12:02) Unknown Home medications list reviewed: Yes - Past Medical/Surgical History Diabetic: No Past Medical History: Patient denies medical history -: Cholecystectomy -: Appendectomy -: Uterine ablation Psychosocial/ Personal History: Patient is . She owns a flower shop. - Family History Brother -: Heart disease, Other (see notes) (Atrial fibrillation with pacemaker/ defibrillator.) Sister -: Heart disease, Other (see notes) (Atrial fibrillation with pacemaker) - Social History Smoking Status: Never smoker Alcohol use: No CD- Drugs: No Caffeine use: Yes Place of Residence: Home Review of Systems General: Fever, Chills, Weakness, Malaise, As per HPI Eyes: Unremarkable ENT: Unremarkable Respiratory: Unremarkable Cardiovascular: Light Headedness, As per HPI Gastrointestinal: Nausea, Vomiting, As per HPI Genitourinary: Unremarkable Musculoskeletal: Unremarkable Integumentary: Unremarkable Neurological: Unremarkable Lymphatics: Unremarkable Physical Examination - Physical Exam General: Alert, In no apparent distress, Oriented x3, Cooperative HEENT: Atraumatic, Normocephalic, PERRLA, Other (Dry mucous membranes) Neck: Supple, No Thyromegaly Respiratory: Clear to auscultation bilaterally, Normal air movement Cardiovascular: Normal pulses, Regular rate/rhythm Gastrointestinal: Normal bowel sounds, Soft and benign, Non-distended, No ascites, No tenderness, No masses, No rebound, No guarding Musculoskeletal: No erythema, No tenderness, No warmth Integumentary: No tenderness/swelling, No erythema, No warmth, No cyanosis Neurological: Normal speech, Normal strength at 5/5 x4 extr, Normal tone, Normal affect - Studies Laboratory Data (last 24 hrs) 01/02/19 16:45: PT 12.3, INR 1.04 01/02/19 16:45: WBC 6.3 D, Hgb 14.8, Hct 45.0 D, Plt Count 363 01/02/19 16:45: Sodium 142, Potassium 3.5, BUN 10, Creatinine 0.74, Glucose 102 , Magnesium 2.3, Total Bilirubin 0.5, AST 20, ALT 27, Alkaline Phosphatase 69 Assessment and Plan - Plan Impression: Recurrent syncopal episode with noted history of headaches Orthostatic hypotension likely related to nausea, vomiting and dehydration Plan: Recurrent syncopal episode with noted history of headaches: Patient will be admitted for further evaluation and treatment. CT head and neck pending at this time. Will need to rule out infectious cause, will check pro calcitonin/ blood cultures/urine culture. Patient with nausea, vomiting and dehydration. Orthostatic changes were noted. Patient likely with viral infection. Will continue with IV fluids. Will monitor closely. Recurrent syncope may be related to cardiac causes well. Family history of atrial fibrillation. A brother and sister have had a pacemaker/defibrillator placed. Will continue to monitor on telemetry. Will monitor cardiac enzymes. Will obtain echocardiogram , carotid Doppler, stroke protocol MRI and EEG. Cardiology consulted to further evaluate. Will keep the patient NPO after midnight as the patient may require further cardiac evaluation. Will have physical therapy assess ambulation. Will continue to reassess. Will monitor electrolytes. Electrolyte protocol in place. DVT prophylaxis-Lovenox in place. Will start aspirin, Lipitor. No need for blood pressure medication at this time but will monitor closely. Will need to monitor for atrial fibrillation due to family history. Will check tsh and free T4 along with fasting lipid panel tomorrow. I will turn the service over to Dr. Schwartz tomorrow. I will go over the plan of care with him. Orthostatic hypotension likely related to nausea, vomiting and dehydration: Will continue with IV fluids. Will need to continue with above plan of care. Will provide medication for nausea. Discharge Plan: Home Plan to discharge in: 24 Hours - Advance Directives Does patient have a Living Will: No Does patient have a Durable POA for Healthcare: No - Code Status/Comfort Care Code Status Assessed: Yes (Patient is full code) Time Spent Managing Pts Care (In Minutes): 55
[2019-01-02 19:02] LABS: Urine Blood NEGATIVE (NEG); Urine Glucose NEGATIVE (NEG); Urine Protein NEGATIVE (NEG)
--- NOTE | 2019-01-02 19:05 | RAD REPORT ---
EXAM DESCRIPTION: CT - [id number] - 01/02/2019 6:47 pm CLINICAL HISTORY: Pain, head and neck injury COMPARISON: CT head and cervical December 27 TECHNIQUE: Axial 5 mm thick images of the head were obtained. Axial 2 mm thick images of the cervic al spine were obtained with sagittal and coronal reconstruction images generated and reviewed. All CT scans are performed using dose optimization technique as appropriate and may include automated exposure control or mA/KV adjustment according to patient size. FINDINGS: No intracranial hemorrhage, mass, edema or acute intracranial finding. No suspicion for acute infarct ion. No extra-axial fluid collections. Mastoid air cells and paranasal sinuses are clear. No globe or orbit abnormality seen. Cervical body height and alignment are normal. C6-7 disc space narrowing and endplate spurring change s are present. Prominent right-sided facet degenerative change at C4-5. Right foraminal and approach min is mild. Mild bilateral foraminal encroachment at C6-7. No fracture or acute bony abnormality. No paraspinal mass or hematoma. IMPRESSION: Negative CT head examination for acute or significant finding. No significant change fro December 27 Cervical spine degenerative change as detailed. No acute finding. No significant change from December 27.
[2019-01-02 21:36] VITALS: BMI 29.7
[2019-01-02] MEDS: NA CHLORIDE 0.9% 1,000 ML IV SCH (21:51)
[2019-01-02] MEDS: ATORVASTATIN 40 MG TAB PO SCH (21:51)
[2019-01-02] MEDS ORDERED: INFLUENZA VACCINE (for 3y+) 0.5 ML DOSE IMVAC ONE (21:54)
[2019-01-03 01:04] LABS: Urine Appearance CLEAR; Urine Bilirubin NEGATIVE (NEG); Urine Blood NEGATIVE (NEG); Urine Color YELLOW; Urine Glucose NEGATIVE (NEG); Urine Protein NEGATIVE (NEG); Urine Urobilinogen 0.2 mg/dL (0.2-1.0); Urine pH 6.5 (5.0-7.0)
[2019-01-03 01:06] LABS: Urine Microscopic Reflex ORDER UMIC
[2019-01-03 01:37] LABS: CKMB Creatine Kinase MB < 1.0 ng/mL (0.3-3.6); Creatine Phosphokinase 59 U/L (26-192); Troponin I < 0.02 ng/mL (0.0-0.045)
[2019-01-03 03:18] LABS: Urine Bacteria <20 /HPF (<20); Urine Culture Reflex Order REFLEXED; Urine RBC <5 /HPF (NONE SEEN)
[2019-01-03] MEDS: NA CHLORIDE 0.9% 1,000 ML IV SCH (05:17)
[2019-01-03 05:39] LABS: Absolute Lymphocytes (CBC) 2.3 K/uL (0.7-4.9); Basophils % 0.5 % (0-1.3); Hematocrit 36.8 % (36.0-45.0); Lymphocytes % 41.1 % (15.3-44.8); MPV 8.3 fL (7.6-11.3); RBC Red Blood Cell Count 4.16 M/uL (3.86-4.86)
[2019-01-03 05:40] LABS: BUN Blood Urea Nitrogen 7 mg/dL (7-18); Bicarbonate 27 mmol/L (21-32); CKMB Creatine Kinase MB < 1.0 ng/mL (0.3-3.6); Creatine Phosphokinase 59 U/L (26-192); Glucose Level 92 mg/dL (74-106); HDL Cholesterol 39 mg/dL (40-60); LDL Cholesterol, Calculated 112 (<130); Magnesium 2.2 mg/dL (1.8-2.4); Potassium 3.6 mmol/L (3.5-5.1); Sodium Level 147 mmol/L (136-145)
[2019-01-03] MEDS ORDERED: LORazepam 2 MG/ML VIAL IV ONE (07:50)
--- NOTE | 2019-01-03 08:01 | RAD REPORT ---
EXAM DESCRIPTION: USCarotid Artery Tkatlprch40/30/2019 9:24 pm CLINICAL HISTORY: Syncope COMPARISON: None FINDINGS: The velocity of the right internal carotid artery equals 85 cm/sec. The right ICA/CCA rati o 1.3 The velocity of the left internal carotid artery equals 58 cm/sec. The left ICA/CCA ratio 0.9 Mild plaque is present within the carotid arteries. The vertebral arteries demonstrate antegrade flow IMPRESSION: Mild plaque within the carotid arteries without evidence of a hemodynamically significan t stenosis NASCET criteria used. Mild 0-49% stenosis Moderate 50-69% stenosis Severe 70-99% stenosis
[2019-01-03] MEDS: ONDANSETRON 4 MG/2 ML VIAL IV PRN ×2 (08:06→16:53)
[2019-01-03] MEDS: ACETAMINOPHEN 500 MG TAB PO PRN ×3 (08:06→23:35)
[2019-01-03] MEDS: ASPIRIN EC 81 MG TAB PO SCH (08:07)
--- NOTE | 2019-01-03 09:59 | EKG ---
Test Date: 2019-01-02 Test Time: 16:55:17 Die Turner: NKECHI MEASUREMENT RESULTS: Intervals: Rate: 71 IL: 146 QRSD: 80 QT: 386 QTc: 419 Bow: P: 66 IL: 146 QRS: 54 T: 41 INTERPRETIVE STATEMENTS: Normal sinus rhythm Nonspecific ST and T wave abnormality Abnormal ECG Compared to ECG 12/27/2018 12:11:05 No significant changes Electronically Signed On 01-03-19 09:57:20 CDT by Christiano Cabral
[2019-01-03] MEDS: ENOXAPARIN 40 MG/0.4 ML SQ SCH (11:09)
[2019-01-03] MEDS: D5 0.45 NS 1,000 ML IV SCH (12:03)
--- NOTE | 2019-01-03 16:43 | RAD REPORT ---
EXAM DESCRIPTION: MRI - Brain W/Wo Cont - 01/03/2019 4:21 pm CLINICAL HISTORY: Syncope, stroke-like symptoms, COMPARISON: CT head January 02 TECHNIQUE: Sagittal and axial T1-weighted images were obtained. Axial PD/heavily T2-weighted and T2- FLAIR images were obtained along with axial DWI/ADC mapping sequences. Coronal heavily T2 weighted s equence obtained. Axial and coronal post-contrast T1-weighted images were also obtained. A 17 ml Mul tihance contrast following utilized. FINDINGS: No intracranial hemorrhage, mass or acute infarction. There is no edema or shift of midli ne structures. No extra-axial fluid collections. Nolen-matter/white matter junction is preserved. Sig nal voids are seen as a normal finding in the major intracranial vessels. No measurable atrophy or ch ronic ischemic change. Post-contrast images show normal enhancement. No dural thickening. Mastoid air cells and paranasal sinuses are clear. IMPRESSION: No infarction. No mass, hemorrhage or acute intracranial finding. No atrophy or chronic ischemic change.
--- NOTE | 2019-01-03 16:45 | RAD REPORT ---
EXAM DESCRIPTION: MRI - MRA Neck W/Wo Cont - 01/03/2019 4:20 pm CLINICAL HISTORY: Syncope, stroke-like symptoms TECHNIQUE: MR angiography of the cervical vasculature performed. Coronal imaging plane acquisition u tilized. A 17 MultiHance contrast volume was utilized. Coronal reformatted images were generated and reviewed. Vertical axis 3D rotational projections obtained using maximum intensity projection protoco l. FINDINGS: Aortic arch is 3 vessel configuration with no origins stenosis. Codominant vertebral arter y show no origins stenoses. Mild tortuosity of the proximal aspect of each vertebral artery. No steno sis, dissection or significant finding. IMPRESSION: Negative MRA neck examination.
--- NOTE | 2019-01-03 16:55 | PN ---
Date of Progress Note: 01/03/2019 Subjective: Patient seen and examined. Chart reviewed and case discussed with RN. Patient has not had any further syncopal episodes, however, does complain of headache. Medications: List reviewed. Physical Examination: Vital Signs: Temperature 97.7, heart rate 86, blood pressure 130/72, respirations 18, O2 97% on room air. General: Awake, alert, oriented x3, in some mild distress, ill-appearing elderly female. CV: S1, S2. Regular rate and rhythm. Peripheral pulses present. Respiratory: Moving air well bilaterally. No wheezing or stridor. Gastrointestinal: Abdomen is soft, nontender, nondistended. Positive bowel sounds. Extremities: No clubbing, cyanosis, or edema. Neurologic: Cranial nerves 2 through 12 intact grossly. No focal neurological deficits. Speech is normal. Laboratory Data: Sodium 147, potassium 3.6, chloride 115, CO2 of 27, BUN 7, creatinine 0.63, glucose 92, calcium 8, magnesium 2.2. CK level is 59. Troponin less than 0.02 x3. Triglycerides 81, papito sterol 167, LDL 112, HDL 39. TSH 1.18. WBC 5.6, H and H 12.1 and 36.8, platelets 297, neutrophils 4 5%. Blood cultures are pending. Urine culture is also pending. UA showed negative nitrite, but 2+ leukocyte esterase. No WBCs or bacteria seen. Carotid artery ultrasound shows mild plaque within th e carotid arteries without evidence of hemodynamically significant stenosis. CT head and cervical sp ine is negative for any acute finding. Cervical spine degenerative changes present. Assessment: 63-year-old female with; 1.Syncopal episode, recurrent, likely related to neurogenic causes versus cardiogenic causes. Patie nt has been seen by Cardiology. Appreciate Dr. Cabral's input. He recommends outpatient Holter mon itor study. We will consult Neurology. 2.Orthostatic hypotension. We will continue with IV fluids. We will gear changer to D5 half NS due to hypernatremia. PT evaluation, fall precautions. 3.Nausea and vomiting, non-intractable. Improved with IV antiemetics. 4.Headache, likely related to fall. We will continue with Tylenol and add tramadol as needed. 5.Hypernatremia. We will adjust IV fluids. Switch over to D5 half NS. We will continue to monitor . Plan: Likely discharge in the next 24 hours depending on clinical response. /ARIELLE Voice ID: [id number] Report ID: [id number]
[2019-01-03] MEDS ORDERED: POTASSIUM CL SA 10 MEQ TAB PO ONE (19:33)
--- NOTE | 2019-01-03 19:44 | RAD REPORT ---
EXAM DESCRIPTION: MRI - MRA Head Wo Cont - 01/03/2019 4:21 pm CLINICAL HISTORY: Syncope, stroke-like symptoms COMPARISON: None. TECHNIQUE: Axial and coronal 3D [id number] image acquisition was performed. 3D rotational images were generated with source and reconstruction images reviewed. Horizontal and vertical axis rotation al views generated using MIP protocol. FINDINGS: Distal internal carotid artery show no suspicious findings. Patient has a small distal rig ht vertebral artery terminating at the posterior inferior cerebellar artery. Basilar artery shows no suspicious finding. Basilar artery is centrally terminates at the superior cerebellar artery level. A very small segment of basilar artery continues in communicates with large bilateral posterior commun icating arteries. These are all normal anatomic variants. Anterior communicating artery is present. N o stenosis, atherosclerotic change or other suspicious finding. IMPRESSION: MR brain imaging shows no stenosis, atherosclerotic change or other suspicious intracra nial finding. Normal anatomic variants are detailed in the body of the report.
[2019-01-03] MEDS: ATORVASTATIN 40 MG TAB PO SCH (20:03)
--- NOTE | 2019-01-03 21:03 | CON ---
Date of Consultation: 01/03/2019 Reason For Consultation: Syncope. History Of Present Illness: Ms. Augustine is a 63-year-old woman, has no significant past medical histor y. Has had 3 episodes of syncope, 1 about 4 months ago and she had 2 over the last couple days. Aft er her fall, she had headaches, vomiting, dizziness, CT of her head, neck, and C-spine were negative. EKG was normal. Carotid Doppler was normal. EEG is pending. Echocardiogram is pending. She had a sodium 147 and chloride of 115. Denied any symptoms before or after the syncope. She was not post ictal. She did not have any incontinence. Denied having any chest pain or palpitation prior to the episode, but does have palpitations intermittently. She is under a lot of stress. She just lost her brother. Past Medical History: Negative. Allergies: INCLUDES HYDROCODONE, TYLENOL. Review of Systems: Negative. Social History: Negative. Family History: Negative. Medications: At home are none. Physical Examination: Vital Signs: Stable. Afebrile. HEENT: Negative. Neck: Supple with no bruit. Chest: Clear to auscultation and percussion. Cardiac: Revealed a regular rhythm and rate. No murmurs, gallops, or rubs. Abdomen: Benign. Extremities: Revealed no clubbing, cyanosis, or edema. Diagnostic Data: As stated earlier. Impression And Plan: Syncope, most likely secondary to dehydration and orthostatic hypotension. Her carotid negative. Her EKG is negative. Her chest x-ray was negative. CT of the head, neck, and C- spine were negative. She had hyponatremia and hyperchloremia, consistent with dehydration. We will see what her echo and EEG show. If all her workup is negative, I would suggest an outpatient event m onitor and a stress test. If her symptoms continue to occur despite negative workup, we will conside r an EP consult. She will see us in the office soon. DENYS Voice ID: [id number] Report ID: [id number]
--- NOTE | 2019-01-04 00:02 | CON ---
Reason For Consultation: Consultation called because of repeated syncope and collapse. History Of Present Illness: Ms. Augustine is a 63-year-old, right-handed, patient, who came to [facility] on January 02 after a syncopal episode. Patient says she has had 3 similar even ts, first earlier this year and then back to back last . She says the events occur without w arning or precipitating factor and she typically falls injuring and she actually hit the back of the head of the last fall, does not hit palms of her hand. In this last fall, she hit the forearm and th e right medial area of the right forearm. One event was witnessed by a co-worker and there was no re ported tonic or clonic activity, tongue biting, or loss of bowel and bladder control. Her workup jimenez s include a brain MRI, which is essentially unremarkable. No evidence of acute ischemic hemorrhagic stroke. MR angiogram of the neck is unremarkable and magnetic resonance angiogram also of the brain unremarkable. Carotid artery ultrasound showed no evidence of hemodynamically significant stenosis. She has an EEG pending. Her blood work reveals completely normal complete blood count with differen tial. Chemistries essentially unremarkable. Liver function studies unremarkable. Thyroid function studies normal. Cholesterol panel is unremarkable except for slightly low HDL of 39. Urinalysis ronal wed 2+ esterase, 1+ ketones, but was otherwise unremarkable. Urine cultures are pending. Her electr ocardiogram showed normal sinus rhythm with nonspecific ST and T-wave abnormalities. Past Medical History: No significant past medical history. Surgical History: Cholecystectomy, appendectomy, tubal ligation, and ankle surgery. Social History: No alcohol, tobacco, or IV drug use. Allergies: HYDROCODONE. Family History: Negative for seizures. Review of Systems: No recent fevers, chills, nausea, vomiting, myalgias, arthralgias, rash, headache, weight change, or psychiatric issues. Physical Examination: Vital Signs: Blood pressure 115/62, pulse of 82, respiratory rate 16, temperature 97.4. General: She is awake, alert, oriented to person, place, situation and time. She follows all comman ds appropriately. She has no expressive or receptive aphasias. Neurologic: Cranial nerves 2 through 12 are intact by exam. Motor, she has normal strength in the u pper and lower extremities and no focal weakness. Sensory exam intact to light touch, temperature in the arms and legs. Coordination intact in upper and lower extremities. Reflexes 2+ in upper and lo wer extremities, symmetric. She has good stance, stride, and arm swing. Her general examination is also unremarkable. Assessment: Ms. Augustine is a 63-year-old patient with at least three episodes of unexplained syncopal episodes. With the event, she has no warning and typically injures parts such as head or shoulders a nd arms without injuring the palms of her hands. Such findings suggest loss of consciousness prior t o falling and the absence of memory of the event suggest possible epileptic etiology. The patient iker y be monitored long-term for event characterization as routine electroencephalogram does not give an answer as to the etiology of the patient's events. Plan: 1.The patient may be discharged home. She is ruled out for stroke significant electrolyte or blood count abnormalities. 2.Once discharged home, she should maintain a diary of the syncopal episodes. 3.Follow up in Dr. Adam's office in 2 or so weeks for an ambulatory video EEG monitoring study. ANN-MARIE Voice ID: [id number] Report ID: [id number]
[2019-01-04] MEDS: D5 0.45 NS 1,000 ML IV SCH ×2 (01:20→04:22)
[2019-01-04 03:58] VITALS: O2SAT 96
[2019-01-04] MEDS: ACETAMINOPHEN 500 MG TAB PO PRN ×2 (05:41→11:37)
[2019-01-04 06:29] LABS: BUN Blood Urea Nitrogen 5 mg/dL (7-18); Bicarbonate 27 mmol/L (21-32); Glucose Level 114 mg/dL (74-106); Potassium 3.5 mmol/L (3.5-5.1); Sodium Level 146 mmol/L (136-145)
[2019-01-04 08:50] VITALS: BP 120/59; TEMP 97.6
[2019-01-04] MEDS: ENOXAPARIN 40 MG/0.4 ML SQ SCH (08:50)
[2019-01-04] MEDS: ASPIRIN EC 81 MG TAB PO SCH (08:51)
[2019-01-04] MEDS ORDERED: POTASSIUM CL SA 10 MEQ TAB PO SCH (09:00)
--- NOTE | 2019-01-04 11:03 | ECHO ---
HEIGHT: 5 ft 4 in WEIGHT: 173 lb 0 oz DATE OF STUDY: 01/04/[address]: Ian Mckeon DO 2-DIMENSIONAL: YES M.MODE: YES DOPPLER: YES COLOR FLOW: YES TDS: NO PORTABLE: NO DEFINITY: NO BUBBLE STUDY: NO DIAGNOSIS: SYNCOPE CARDIAC HISTORY: CATHERIZATION: NO SURGERY: NO PROSTHETIC VALVE: NO PACEMAKER: NO MEASUREMENTS (cm) DIASTOLIC (NORMALS) SYSTOLIC (NORMALS) IVSd 0.9 (0.6-1.2) LA Diam 3.0 (1.9-4.0) LVEF 79% LVIDd 4.5 (3.5-5.7) LVIDs 2.4 (2.0-3.5) %FS 48% LVPWd 0.9 (0.6-1.2) Ao Diam 2.8 (2.0-3.7) 2 DIMENSIONAL ASSESSMENT: RIGHT ATRIUM: NORMAL LEFT ATRIUM: NORMAL RIGHT VENTRICLE: NORMAL LEFT VENTRICLE: NORMAL TRICUSPID VALVE: NORMAL MITRAL VALVE: NORMAL PULMONIC VALVE: NORMAL AORTIC VALVE: NORMAL PERICARDIAL EFFUSION: NONE AORTIC ROOT: NORMAL LEFT VENTRICULAR WALL MOTION: NORMAL. DOPPLER/COLOR FLOW: NORMAL. COMMENTS: NORMAL 2D ECHO WITH DOPPLER. TECHNOLOGIST: DESIRE JERNIGAN
--- NOTE | 2019-01-04 13:22 | EEG ---
CHART: [id number] TEST ID#: [id number] DATE OF STUDY: 01/03/19 THE EEG WAS RECORDED PORTABLE IN THE PATIENTS ROOM ON A 17 CHANNEL MACHINE. ELECTRODES WERE APPLIED IN THE USUAL MANNER USING THE INTERNATIONAL 10-20 SYSTEM. THE WAKING BACKGROUND RHYTHM IN THIS RECORD CONSISTS OF VERY WELL DEVELOPED AND WELL ORGANIZED WAVES OF 9.5 HZ., MAXIMAL IN THE POSTERIOR HEAD REGIONS WHICH ATTENUATE NORMALLY WITH EYE OPENING. LOW-VOLTAGE 18-22 HZ ACTIVITY IS EXPRESSED IN THE FRONTAL REGIONS. THERE ARE NO FOCAL OR LATERALIZING FEATURES. NO EPILEPTIFORM ACTIVITY APPEARS. SLEEP OCCURRED NATURALLY. IN ADDITION TO NORMAL SLEEP PATTERNS ARE PRESENT. HYPERVENTILATION WAS NOT PREFORMED. PHOTIC STIMULATION PRODUCED FAIR DRIVING BILATERALLY. IMPRESSION: NORMAL EEG FOR THE AGE OF THE PATIENT IN [place], DROWSINESS AND SLEEP.
--- NOTE | 2019-01-05 03:07 | DS ---
Date of Discharge: 01/04/2019 Consultants: Marcio Adam MD, Neurology; Dr. Cabral with Cardiology. Admitting Diagnoses: 1.Syncope. 2.Orthostatic hypotension. 3.Nausea, vomiting. 4.Dehydration. Hospital Course: The patient is a 63-year-old female with no significant past medical history, comes in with recurrent episodes of syncope. Patient was found to have some nausea, vomiting, was slightl y dehydrated. She was started on IV fluids, clinically improved. She did have some orthostatic hypo tension, had some electrolyte abnormalities, which improved with treatment. Her sodium was mildly el evated at 147. She was switched to D5 half NS, which improved her numbers. Blood culture showed no growth to date. Urine culture was negative. She had MRI of the brain to rule out stroke, which was negative. Carotid artery ultrasound did not show any hemodynamically significant stenosis. MRA and MRI of the brain showed no stenosis, atherosclerotic change or other suspicious intracranial finding. Head CT and cervical spine were also negative for any acute changes. Her chest x-ray was clear. S he had an EEG done by Dr. Adam to rule out any sort of epileptic activity, which was negative. Yasmeen duque was also seen by Cardiology and telemetry was ordered, which did not show any arrhythmias to d ate. Patient will need outpatient Holter monitor study and will need ambulatory video EEG monitoring study as well. She was then cleared for discharge from [employer] consultant's standpoint. She was able to am bulate without difficulty, no further syncopal episodes. She had a normal echocardiogram with an eje ction fraction of 79%. She understands the risks associated with syncopal episodes. She is not to d rive, swim, or have go on unattended heights until her workup is complete. Diet: Regular. Followup: Follow up with primary care physician in 2-3 days. Follow up with customer operations intern, Dr. Maxi murray in 2 weeks for Holter monitor study. Follow up with neurologist, Dr. Adam in 2 weeks to have EEG study set up. Return to ER for worsening condition. Medications: As per medication reconciliation list. Physical Examination: General: Awake, alert, oriented, no acute distress. CV: S1, S2. No murmurs. Respiratory: Moving air well bilaterally. Abdomen: Abdomen is soft, nontender, nondistended. Positive bowel sounds. Extremities: No clubbing, cyanosis, edema. Neurologic: Nonfocal. SA/MODL Voice ID: [id number] Report ID: [id number]
== END 2019-01-04 13:00 | disposition home or self-care (01) ==
LOC: ER 15:47 → ERHOLD 18:42 → 2ND 20:11
PROVIDERS: ADMIT Family Medicine; ATTEND Family Medicine
DX: I95.1 Orthostatic hypotension (principal); R55 Syncope and collapse; E86.0 Dehydration; R51 Headache; E87.0 Hyperosmolality and hypernatremia; E87.1 Hypo-osmolality and hyponatremia; Z28.21 Immunization not carried out because of patient refusal
CPT/HCPCS: 96361; 93005; 93306; 95819; 87040 ×2; 87088; 85025 ×2; 87086; 80048 ×3; 36415 ×2; 83735 ×2; 82550 ×2; 85610; 80061; 80076; 84443; 84484 ×3; 82553 ×2; 84439; 84145; 83880; 70450; 72125; 71045; 93880; 70553; 70544; 70549; 97112; 97116; 97161; 96375; 96374; 99285; A9577; J2765; J1200; J1650 ×2; J7799 ×2; J7030 ×3; J2405 ×2; G0378 ×4; 81003; 81015

== ENCOUNTER 2019-02-12 06:22 | Day surgery (SDC) | payer OTHER ==
[2019-02-11 14:30] LABS: Absolute Lymphocytes (CBC) 2.5 K/uL (0.7-4.9); Basophils % 0.8 % (0-1.3); Hematocrit 37.8 % (36.0-45.0); Lymphocytes % 36.4 % (15.3-44.8); MPV 8.5 fL (7.6-11.3); RBC Red Blood Cell Count 4.27 M/uL (3.86-4.86)
[2019-02-11 14:44] LABS: Protime INR 0.96
[2019-02-11 14:47] LABS: Potassium 3.7 mmol/L (3.5-5.1)
[2019-02-12] MEDS ORDERED: NA CHLORIDE 0.9% 500 ML ONE (07:03)
[2019-02-12] MEDS ORDERED: HEPA 1000U/500MLS 1,000 UNIT/500 ML BAG IV ONE (08:39)
[2019-02-12] MEDS ORDERED: MIDAZOLAM HCL 2 MG/2 ML INJ ONE ×2 (08:40→08:56)
[2019-02-12] MEDS ORDERED: ATROPINE SULF 1 MG/10 ML SYR IV ONE (08:41)
[2019-02-12] MEDS ORDERED: LIDOCAINE 1% MPF 30 ML VIAL ONE (08:41)
[2019-02-12] MEDS ORDERED: FENTANYL CITR 100 MCG/2 ML ONE (08:41)
[2019-02-12] MEDS ORDERED: NA CHLORIDE 0.9% 0 ML ONE (08:41)
[2019-02-12 11:44] VITALS: BP 120/61; O2SAT 98
[2019-02-12 11:46] VITALS: TEMP 97.2
--- NOTE | 2019-02-12 20:23 | OP ---
Surgeon: Christiano Cabral MD Waste Specialist: Jeanie Aguilar. She was admitted to my service as an outpatient on 02/12/2019 for left heart catheterization and rei ctive coronary arteriogram. Indication was syncope and positive stress test. Procedure In Detail: Patient was brought to the lab support service tech, prepped and draped in the routine sterile fashion. Given Versed for IV sedation. A 6-Vietnamese sheath was introduced in the right common femoral artery successfully. A 6-Vietnamese sheath was introduced there. 6-Vietnamese catheters, Deborah, left and right, were used to inject the left main and the right main respectively. Ms. Davide coronaries were perfectly normal. There was no atherosclerosis noted. There were no complications. Blood Loss: 5 mL. Postoperative Diagnosis: Abnormal stress test, syncope with normal coronaries. Plan: To continue medical therapy. Consider electrophysiology study. Anesthesia: Total conscious sedation was 30 minutes. NELIDA/ARIELLE Voice ID: [id number] Report ID: [id number]
== END 2019-02-12 11:35 | disposition home health service (06) ==
LOC: OR 06:22 → CCL 06:22
DX: R94.39 Abnormal result of other cardiovascular function study (principal); R07.89 Other chest pain; R55 Syncope and collapse; R00.2 Palpitations; R94.31 Abnormal electrocardiogram [ECG] [EKG]; F41.9 Anxiety disorder, unspecified; M12.9 Arthropathy, unspecified; Z88.6 Allergy status to analgesic agent
CPT/HCPCS: 85025; 80048; 36415; 85610; 85730; 93454; C1893; C1760; J2250 ×2; J3010; J7040; J0583